=== PATIENT | female | born 1950 | race Caucasian/White ===

== ENCOUNTER 2017-06-27 12:30 | Inpatient (IN) | payer MEDICARE ==
[2017-07-03] MEDS ORDERED: ACETAMINOPHEN 1,000 MG/100 ML BTL IV ONE (06:00)
[2017-07-03] MEDS ORDERED: VANCOMYCIN HCL 1,000 MG in 0.9 % SODIUM CHLORIDE 250ML 250 ML IVPB ONE (06:00)
[2017-07-03] MEDS ORDERED: MECLIZINE 25 MG TABLET PO ONE (06:00)
[2017-07-03] MEDS ORDERED: FAMOTIDINE 20MG TABLET PO ONE (06:00)
[2017-07-03] MEDS ORDERED: CELECOXIB 100 MG CAPSULE PO ONE (06:00)
[2017-07-03] MEDS ORDERED: METOCLOPRAMIDE 10 MG TABLET PO ONE (06:00)
[2017-07-03] MEDS ORDERED: TRANEXAMIC ACID 1,000 MG/10 ML ML IV ONE (08:00)
[2017-07-03] MEDS ORDERED: VANCOMYCIN HCL 1 GM VIAL IVPB ONE (08:00)
[2017-07-03] MEDS ORDERED: BUPIVACAINE LIPOSOME 266MG/20ML VIAL IV ONE (08:00)
[2017-07-03] MEDS ORDERED: BUPIVACAINE 0.5% W/EPI MPF 30 ML VIAL IVP ONE (08:00)
[2017-07-03 11:52] LABS: ABO GROUP A; ANTIBODY SCREEN NEGATIVE (NEGATIVE); RH TYPE POSITIVE
[2017-07-03] MEDS ORDERED: PROMETHAZINE HCL 12.5 MG in 0.9 % SODIUM CHLORIDE 100ML 50 ML IVPB PRN (12:58)
[2017-07-03] MEDS ORDERED: HYDROMORPHONE HCL 1MG/ML **SYRINGE IM PRN (12:58)
[2017-07-03] MEDS ORDERED: TRAMADOL HCL 50 MG TABLET PO PRN ×2 (12:58)
[2017-07-03] MEDS ORDERED: ACETAMINOPHEN W/ CODEINE 300MG/30MG TABLET PO PRN ×2 (12:58)
[2017-07-03] MEDS ORDERED: HYDROCODONE/APAP 5/325MG TABLET PO PRN ×2 (12:58)
[2017-07-03] MEDS ORDERED: METOCLOPRAMIDE HCL 10 MG/2 ML VIAL IVP PRN (12:58)
[2017-07-03] MEDS ORDERED: BISACODYL 10 MG SUPP RC PRN (12:58)
[2017-07-03] MEDS ORDERED: DIPHENHYDRAMINE HCL 25 MG CAPSULE PO PRN (12:58)
[2017-07-03] MEDS ORDERED: AL HYDROX/MAG HYDROX 30ML UD PO PRN (12:58)
[2017-07-03] MEDS ORDERED: ONDANSETRON HCL IV 4 MG/2 ML VIAL IVP PRN (12:58)
[2017-07-03] MEDS ORDERED: HYDROMORPHONE HCL 2 MG/ML VIAL IM PRN (12:58)
[2017-07-03] MEDS ORDERED: ZOLPIDEM TARTRATE 5 MG TABLET PO PRN (12:58)
[2017-07-03] MEDS ORDERED: MORPHINE SULFATE 5 MG/ML PFS IVP PRN ×4 (12:58)
[2017-07-03] MEDS ORDERED: ACETAMINOPHEN W/ CODEINE 300MG/60MG TABLET PO PRN ×2 (12:58)
[2017-07-03] MEDS ORDERED: NALOXONE 0.4 MG/1 ML VIAL IVP PRN (12:58)
[2017-07-03] MEDS ORDERED: KETOROLAC 30 MG/ML VIAL IVP PRN ×2 (12:58)
[2017-07-03] MEDS ORDERED: MAGNESIUM HYDROXIDE 30 ML UDC PO PRN (12:58)
[2017-07-03] MEDS ORDERED: ACETAMINOPHEN 325 MG TAB PO PRN (12:58)
[2017-07-03] MEDS ORDERED: HYDROCODONE/APAP 7.5/325MG TABLET PO PRN (12:58)
[2017-07-03] MEDS ORDERED: FENTANYL PF 100MCG/2ML VIAL IV ONE (14:00)
[2017-07-03] MEDS ORDERED: PROPOFOL 10 MG/ML VIAL IV ONE (14:00)
[2017-07-03] MEDS ORDERED: KETOROLAC 30 MG/ML VIAL IVP ONE (14:00)
[2017-07-03] MEDS ORDERED: *PACU ONLY* KETAMINE HCL 10 MG/ML (20ML) VIAL IV ONE (14:00)
[2017-07-03] MEDS ORDERED: HYDROMORPHONE HCL 2 MG/ML VIAL IV ONE (14:00)
[2017-07-03] MEDS ORDERED: MIDAZOLAM HCL 2MG/2ML VIAL IV ONE (14:00)
[2017-07-03] MEDS ORDERED: DEXTROSE 5 % AND 0.9 % NACL 1,000 ML IV PRN (15:00)
[2017-07-03] MEDS ORDERED: PATIENT OWN MED: PROAIR HFA INH PRN (16:42)
--- NOTE | 2017-07-03 17:21 | Physical Therapy Tx Note ---
Physical Therapy Tx Note - Treatment Note Physical Therapy Tx Note: Detail (The patient was nauseated and experiencing vertigo " The room is spinning". Patient refused PT.)
[2017-07-03] MEDS ORDERED: LORAZEPAM 0.5 MG TABLET PO PRN (18:42)
[2017-07-03] MEDS: MECLIZINE 25 MG TABLET PO PRN (18:53)
[2017-07-03] MEDS: DULERA INH SCH (21:23)
[2017-07-03] MEDS: POTASSIUM CHLORIDE 20 MEQ TABLET PO SCH (21:48)
[2017-07-03] MEDS: DOCUSATE SODIUM 100 MG CAPSULE PO SCH (21:48)
[2017-07-03] MEDS: FERROUS SULFATE 325 MG TAB PO SCH (21:48)
[2017-07-03] MEDS ORDERED: METFORMIN ER HCL 500 MG TAB.ER.24H PO SCH (22:00)
[2017-07-03] MEDS: VANCOMYCIN HCL 1,000 MG in 0.9 % SODIUM CHLORIDE 250ML 250 ML IVPB SCH (23:41)
[2017-07-04] MEDS: MECLIZINE 25 MG TABLET PO PRN (05:45)
[2017-07-04 06:30] LABS: HEMATOCRIT 35.3 % (35.0-47.0)
[2017-07-04] MEDS ORDERED: PANTOPRAZOLE SODIUM 40 MG TABLET PO SCH (07:00)
[2017-07-04] MEDS: HYDROCODONE/APAP 7.5/325MG TABLET PO PRN ×2 (07:44→11:05)
[2017-07-04] MEDS: DULERA INH SCH (09:06)
--- NOTE | 2017-07-04 09:38 | Operative Note ---
DATE OF SURGERY: 07/03/2017. PREOPERATIVE DIAGNOSIS: Endstage right knee arthrosis. POSTOPERATIVE DIAGNOSIS: Endstage right knee arthrosis. OPERATION: Right total knee arthroplasty. SURGEON: Luis Alberto Lindsay M.D. ANESTHESIA: Spinal, Jackelyn Santana CRNA COMPLICATIONS: None. ESTIMATED BLOOD LOSS: Minimal. OPERATIVE FINDINGS: Vjae-ur-nekb arthrosis. COMPONENTS PLACED: A 2.0 gm vancomycin cemented [employer] Journey II Oxinium size 5 femoral component, a size 4 tibial baseplate, a 10 mm thick tibial poly insert, and 35 mm cemented patellar component. INDICATIONS: This is an 67-year-old female who has endstage knee arthrosis. She has failed nonoperative treatments and scheduled for a knee replacement. I explained all risks and benefits of surgery in detail for the diagnosis and procedures including but not limited to infection, nerve injury, vessel injury, persistent pain, stiffness, numbness and tingling in the knee, periprosthetic fracture, need for resection arthroplasty if components are infected, blood clot , and need for further procedures. All of her questions were answered. The course was outlined and she agreed to proceed. PROCEDURE: The patient brought to the operating room and was placed in the supine position. Spinal anesthesia induced. Her right lower extremity was prepped and draped in sterile fashion. Right knee prepped again with ChloraPrep and draped. Intraoperative time out was performed. Next, the anterior knee was marked for incision and infiltrated with 0.5% Marcaine with epinephrine. The leg was exsanguinated and the knee was flexed. The tourniquet was inflated to 250 mm Hg compression. Next, the skin and subcutaneous tissue were dissected down to the capsule. Incised the capsule medially around the medial border of the patella to the tibial tubercle. Incised the vastus medialis in line with its fibers in a mid vastus approach. I partially resected the retropatellar fat pad, everted the patella, flexed the knee, and elevated the capsule subperiosteally and medially. She had [id number] arthrosis throughout. Next I drilled an intracondylar drill hole and inserted intramedullary guide zoe and the 60-degree cutting block along the distal femoral condyle and pinned it in place and cut the femur. Next, I placed a sizing jig on the distal femur and sized it to size 5. I placed the cutting jig through the previously-placed pin holes, so the anterior cut came out flush without notching. We cut that and it was a good cut. We then pinned the cutting jig and cut the remaining chamfer cuts in the usual fashion. Placed a size 5 femoral component, centered it, pinned it, inserted the femoral resection and collet, reamed out with a box osteotome off with the cruciate bone block. Next, attention was turned to the tibia. Placed the extra-alignment jig in the tibia, seated the spikes in the tubercular groove two fingerbreadths distal to the anterior tibial cortex. Referenced for a 7.0 mm cut off the higher medial plateau. We pinned it and the cutting jig provisionally placed to anterior- posterior pins. We then rechecked alignment of the cutting jig using a drop zoe going through the handle and aligned it on the tibial anatomic access. The second metatarsal was cross pinned and the cutting jig completed its fixation, and cut the tibia. Next, we removed osteophytes off the posterior femoral condyles and checked the flexion and extension gaps. Basically symmetric flexion steps were found with the 10 mm thick poly insert. This allowed 2.0 to 3.0 mm of varus valgus laxity and flexion and extension. Overall alignment in extension was anatomic in valgus orientation with alignment zoe centered on the hip joint and ankle joint. Next took the knee in flexion and sized the tibial baseplate to be size 4. Replaced all trial components, set the rotation tibial baseplate again in extension using the alignment zoe centered on hip joint and ankle joint. Marked electrocautery beasley on the anterior tibial cortex off the laser beasley of the tibial baseplate. Attention was turned to the patella. I measured the patella and it was 22 mm. I set the cutting jig at 13 mm to allow for a 9.0 mm thick poly insert. Cut the patella and chamfered off the patella facet and measured it to be 35. It was centered and medialized as much as possible, and drilled three peg holes. Next , I placed the trial patella component and checked the knee range of motion. The knee had full extension and flexion to 134 degrees. Symmetric flexion and extension gaps. Next I mixed cement. Placed the trial tibial component off the previously placed electrocautery beasley. I pinned it in place and reamed out and keel punched out the keel hole. I placed a bone plug in the femoral canal hole. I irrigated all bony surfaces and pulse lavaged with antibiotic solution. Changed gloves and brought in a clean sheet. I placed the drill bit in the tibial keel hole and precut both surfaces. I then impacted down down the tibial component and then the femoral component. I removed excess cement. I placed the trial poly insert and held the knee in extension until until the cement hardened. I then clamped down the patellar component. Once the cement hardened, I took the knee in flexion, distraction of the knee with sponge and irrigated copiously. Removed excess cement around the edge of the components. Injected around the periphery of the knee with 0.5% Marcaine with epinephrine, 2.0 gm tranexamic acid, and Exparel deep capsule medial and lateral. I then worked out more superficially to the periosteum, muscle, and subcutaneous layer. Next, I inserted the real tibial poly insert and verified it was interlocked medially and laterally. I found our range of motion was still the same. Irrigated. Repaired the knee in flexion using a #2 Quill suture and repaired the capsule. Next I closed the skin with 2-0 Vicryl and a zip line. Injected with 0.5% Marcaine with epinephrine again. Sterile dressing applied. The patient tolerated the procedure well. No intraoperative complications. Sponge, needle, and blade counts correct. Recovery room stable, neurovascularly intact. He will be discharged to the floor and can likely be discharged home tomorrow with Lindsey. cc: Dom Barahona M.D. WENDY
[2017-07-04] MEDS ORDERED: LOSARTAN POTASSIUM 25 MG TABLET PO SCH (10:00)
[2017-07-04] MEDS ORDERED: FLUTICASONE PROPIONATE 50MCG NASAL 16 GM BTL SCH (10:00)
[2017-07-04] MEDS ORDERED: PATIENT OWN MED: FLUTICASONE NASAL SPRAY INH SCH (10:00)
[2017-07-04] MEDS ORDERED: ATORVASTATIN 20 MG TABLET PO SCH (10:00)
[2017-07-04] MEDS ORDERED: RIVAROXABAN 10 MG TABLET PO SCH (10:00)
[2017-07-04] MEDS ORDERED: FUROSEMIDE 40 MG TABLET PO SCH (10:00)
[2017-07-04] MEDS ORDERED: CELECOXIB 100 MG CAPSULE PO SCH (10:00)
[2017-07-04] MEDS ORDERED: GLIMEPIRIDE 2 MG TABLET PO SCH (10:00)
[2017-07-04] MEDS: DOCUSATE SODIUM 100 MG CAPSULE PO SCH (10:13)
[2017-07-04] MEDS: FERROUS SULFATE 325 MG TAB PO SCH (10:14)
[2017-07-04] MEDS: POTASSIUM CHLORIDE 20 MEQ TABLET PO SCH (10:15)
--- NOTE | 2017-07-04 10:41 | Rehab Evaluation ---
Patient Information - Patient Information Diagnosis: OA right knee Ordered Treatment: PT Evaluate and Treat Status: Initial Evaluation Surgery: Yes (Right TKA) Date of Surgery: 07/03/17 Past Medical/Surgical Hx: PAST MEDICAL/SURGICAL HISTORY Past Surgical History gallbladder; appy; total hysterectomy; tonsillectomy c scopes PMH - Respiratory Hx Respiratory Disorders Yes Hx Asthma Yes: onset 2 years ago started with URI controlled with inhaler Hx Bronchitis Yes Hx of SOB Yes: with exertion PMH - Cardiovascular Hx Cardiovascular Disorders Yes Hx Edema Yes: on lasix swelling in ankles Hx Hypertension Yes: on meds good control Hx Irregular Heartbeat Yes: years ago started on toprol no problems since Exercise Tolerance Fair Comment: due to knee and asthma PMH - Neuro Hx Neurological Disorders Yes Hx Syncope Yes: passes out when she has vomitting and diarrhea Hx Weakness Yes: right knee PMH - GI Hx Gastrointestinal Disorders Yes Hx Gastroesophageal Reflux Yes: on meds good control Hx Weight Loss/Weight Gain Yes: 12 lb loss since January PMH - Hx Genitourinary Disorders No Comment: s/p hyst 1996 PMH - Endocrine Hx Endocrine Disorders Yes Hx Diabetes Yes: dx 1 1/2 years ago Hx of NIDDM Yes Comment: blood sugars running high 200 leighton on new meds x ' s 5 days PMH - Musculoskeletal Hx Musculoskeletal Disorders Yes Hx Arthritis Yes PMH - Psych Hx Psychiatric Problems No PMH - Hematology/Oncology Hx Hematology/Oncology No Disorders Social History: Detail (Patient lives with in ranch style house. Has two steps if goes in from front of house with flat platform type steps and may try that when goes home for ease of getting into house. Has three steps at back of house. Has rest of house set-up for this surgery pretty well. Will have home health PT for two weeks at first.) Precautions: [place], Fall - Time With Patient Total Time Spent With Patient (Min): 30 Treatment Procedures: Detail (Patient seen bedside and ready to get up. Supine to sit with very little assist with right LE. Sit to stand with CGA and FWW and able to ambulate with assist with IV and CGA into bathroom, able to sit on commode but needed mod assist to stand again. Able to ambulate into [place]cock with FWW and CGA, assisting with IV pole about 30 feet then back to chair and able to sit down independently. Performed exercises with patient seated in chair: hip flexion (november), knee flexion and extension with assist, ankle pumps. Left patient in chair to work with cryocuff specialist with call light and tray table close.) Subjective Information - Subjective Information Per Patient Objective Data - Pain Pain Present: Yes Pain Scale Used: Numeric (1 - 10) (3-4) - Mental Status Patient Orientation: Oriented x3 - Visual Perception Appears within normal limits for therapeutic activities - ROM Within normal limits (except right knee about -10degrees extension to 60 degrees flexion.) - Strength/Tone Within normal limits (Except right knee: 3-/5 quads, hams 3+/5, right hip 3/5) - Coordination Appears within normal limits for therapeutic activities - Bed Mobility Needs Assist (Only needs slight assist getting out of bed, did not test into bed yet.) - Transfers Needs Assist (Slight assist transfers.) - Balance Balance Sitting: Good Balance Standing: Good - Sensation Intact - Gait Detail (Using FWW, adjusted height but may still be too high with walker. Will adjust again before stairs this afternoon.) - Special Tests No Therapy Assessment - Therapy Assessment Detail (Patient doing better this am than yesterday after surgery. Able to get up now and walk without meds for dizziness and nausea.) Patient Education - Patient Education Teaching Topic: Equipment Use, Exercise/Activity Response: Return Demonstration Teaching Method: Discussion, Demonstration Teaching Recipient: Patient, Family Barriers To Learning: None Problem List - Problem List Physical Therapy Problem List: Detail (Some mobility issues yet secondary to knee surgery. Transfers also an issue, gait short distances yet and difficulty with exercises for knee.) Goals - Goals Physical Therapy Goals: Patient will be able to transfer and perform bed mobility more easily, patient will be able to walk 50 to 100 feet with good tolerance and patient will demonstrate good understanding of exercises to perform at home. Patient will be able to negotiate steps safely for entrance and exit for house. Prognosis - Prognosis Good (Patient doing much better today and should be able to accomplish all goals today or by tomorrow am.) Plan - Plan Physical Therapy Plan: Continue PT BID day after surgery until meets PT goals so safe to go home. If needs more PT second day after surgery to be safe to go home, will see patient to meet goals. If patient stays another night but has passed goals for PT, will not be seen.
[2017-07-04] MEDS ORDERED: TRANEXAMIC ACID 1,000 MG/10 ML ML IV ONE (12:25)
[2017-07-04] MEDS: VANCOMYCIN HCL 1,000 MG in 0.9 % SODIUM CHLORIDE 250ML 250 ML IVPB SCH (12:29)
--- NOTE | 2017-07-04 12:30 | Rehab Evaluation ---
Patient Information - Patient Information Diagnosis: OA right knee Ordered Treatment: OT Evaluate and Treat Status: Initial Evaluation Surgery: Yes (Right TKA) Date of Surgery: 07/03/17 Past Medical/Surgical Hx: PAST MEDICAL/SURGICAL HISTORY Past Surgical History gallbladder; appy; total hysterectomy; tonsillectomy c scopes PMH - Respiratory Hx Respiratory Disorders Yes Hx Asthma Yes: onset 2 years ago started with URI controlled with inhaler Hx Bronchitis Yes Hx of SOB Yes: with exertion PMH - Cardiovascular Hx Cardiovascular Disorders Yes Hx Edema Yes: on lasix swelling in ankles Hx Hypertension Yes: on meds good control Hx Irregular Heartbeat Yes: years ago started on toprol no problems since Exercise Tolerance Fair Comment: due to knee and asthma PMH - Neuro Hx Neurological Disorders Yes Hx Syncope Yes: passes out when she has vomitting and diarrhea Hx Weakness Yes: right knee PMH - GI Hx Gastrointestinal Disorders Yes Hx Gastroesophageal Reflux Yes: on meds good control Hx Weight Loss/Weight Gain Yes: 12 lb loss since January PMH - Hx Genitourinary Disorders No Comment: s/p hyst 1996 PMH - Endocrine Hx Endocrine Disorders Yes Hx Diabetes Yes: dx 1 1/2 years ago Hx of NIDDM Yes Comment: blood sugars running high 200 [place]on on new meds x ' s 5 days PMH - Musculoskeletal Hx Musculoskeletal Disorders Yes Hx Arthritis Yes PMH - Psych Hx Psychiatric Problems No PMH - Hematology/Oncology Hx Hematology/Oncology No Disorders Premorbid Status: Detail (Pt lives with spouse in a 1 story house with basement. Her laundry is in the basement but spouse will be responsible for laundry tasks until she is more mobile. She has 2 steps by a landing at the front entrance and 3 steps at the rear entrance, no handrails. She has a walk in shower, no grab bars and an elevated toilet, no grab bars. She and spouse share all home mgmt, meal prep and laundry. She has a commode, 2 wheeled walker, wheelchair, straight cane and tub bench.) Social History: Detail (Supportive spouse.) Precautions: [place], Fall - Time With Patient Total Time Spent With Patient (Min): 40 Treatment Procedures: Detail (OT eval low complexity) Subjective Information - Subjective Information Per Patient Objective Data - Pain Pain Present: Yes (4-5/10) - Mental Status Patient Orientation: Oriented x3 - Visual Perception Appears within normal limits for therapeutic activities - ROM Within normal limits (Chris UE AROM WNL) - Strength/Tone Within normal limits (Chris UE strength WNL) - Coordination Appears within normal limits for therapeutic activities - Transfers Independent (Ind with sit to stand from chair and toilet height.) - Balance Balance Sitting: Good Balance Standing: Good - Sensation Intact - Gait Detail (Pt ambulating in room with 2 wheeled walker and SBA) - ADL's/IADL's Detail (Pt able to don shirt and pants Indly using modified dressing technique, she required min assist for slippers but reports spouse will be assisting her as needed. She was Ind with toileting.) Therapy Assessment - Therapy Assessment Detail (Pt is Ind with modified dressing technique, spouse will be assisting as needed. Reviewed adaptive equipment, pt feels this is not necessary at this time.) Problem List - Problem List Physical Therapy Problem List: Detail (Some mobility issues yet secondary to knee surgery. Transfers also an issue, gait short distances yet and difficulty with exercises for knee.) Occupational Therapy Problem List: Detail (No current OT problems identified.) Goals - Goals Physical Therapy Goals: Patient will be able to transfer and perform bed mobility more easily, patient will be able to walk 50 to 100 feet with good tolerance and patient will demonstrate good understanding of exercises to perform at home. Patient will be able to negotiate steps safely for entrance and exit for house. Occupational Therapy Goals: No current IP OT goals identified. Prognosis - Prognosis Good Plan - Plan Physical Therapy Plan: Continue PT BID day after surgery until meets PT goals so safe to go home. If needs more PT second day after surgery to be safe to go home, will see patient to meet goals. If patient stays another night but has passed goals for PT, will not be seen. Occupational Therapy Plan: No further IP OT recommended at this time. Thank you for this referral.
--- NOTE | 2017-07-04 15:01 | Physical Therapy Tx Note ---
Physical Therapy Tx Note - Treatment Note Tolerated: Good (Patient still moving slowly but very safety conscious and stable with gait, mobility and even stairs. Has more pain since this am's treatments.) Total Time Spent With Patient: 30 Physical Therapy Tx Note: Detail (Patient seen bedside, sitting up in bed and just finished antibiotic. Nurse able to unhook IV and patient moved from supine to sit to stand with good technique and standard walker. Ambulated in babcock about 60 feet with standard walker then rested in chair near stairs. Sit to stand with slight assist then ambulated to stairs, therapist folded walker and patient able to ambulate down three steps with assist of rail, folded walker and CGA with correct technique and very safe. Able to pivot around on strong leg and ambulated back up three steps using rail, folded walker and CGA of PT. Ambulated back to room with standard walker and used restroom with CGA only. Back into bed with very slight assist with right LE then performed exercises for right LE in bed with cues and min assist. Replaced cryocuff, compressive stockings, call light and tray table. present to help as needed.) Physical Therapy Problem List: Detail (Some mobility issues yet secondary to knee surgery. Transfers also an issue, gait short distances yet and difficulty with exercises for knee.) Physical Therapy Goals: Patient will be able to transfer and perform bed mobility more easily, patient will be able to walk 50 to 100 feet with good tolerance and patient will demonstrate good understanding of exercises to perform at home. Patient will be able to negotiate steps safely for entrance and exit for house. Prognosis: Good (Patient actually did very well with stairs and is slowly increasing endurance with walker, into and out of bed more easily. She does fatigue easily and pain may not be under good control yet. She is doing well with exercises at this point in rehab of knee. If she stays another night in hospital we will see her in am to make sure endurance continuing to improve.) Physical Therapy Plan: Continue PT BID day after surgery until meets PT goals so safe to go home. If needs more PT second day after surgery to be safe to go home, will see patient to meet goals. If patient stays another night but has passed goals for PT, will not be seen.
== END 2017-07-04 17:17 | disposition home or self-care (01) | DRG 470 ==
LOC: MEDSURG 07-03 10:53
PROVIDERS: ADMIT Orthopaedic Surgery; ATTEND Orthopaedic Surgery
PROC: 0SRC069 Replacement of Right Knee Joint with Oxidized Zirconium on Polyethylene Synthetic Substitute, Cemented, Open Approach (ICD-10-PCS; principal; 2017-07-03 13:00)
DX: M17.11 Unilateral primary osteoarthritis, right knee (principal); I10 Essential (primary) hypertension; E11.9 Type 2 diabetes mellitus without complications; Z79.84 Long term (current) use of oral hypoglycemic drugs; E78.00 Pure hypercholesterolemia, unspecified
CPT/HCPCS: 36416; 82948; 85014; 85018; 86850; 86900; 86901; 94640; 94760; 94761; 97110; 97116; 97165; J1885; J2405; J2550; J7042; J7050